=== PATIENT | female | born 1950 | race Caucasian/White ===

== ENCOUNTER 2017-12-22 20:07 | Inpatient (IN) ==
--- NOTE | 2017-12-22 21:35 | ED ---
HPI General Chief Complaint: Fall Stated Complaint: Evac/Fall Time Seen by Provider: 12/22/17 21:18 History of Present Illness HPI Narrative: This is a 67-year-old female who presents to the emergency department having been up on the second story of her storage space when she fell and landed on her left side. She has severe pain in her left upper arm, constant, worse with movement, improved with rest. She also has a large hematoma on the left hip and has some pain there. She was able to weight-bear with EMS with assistance. She did hit her head. She has some pain in her neck but she has chronic neck pain. She is on Plavix. She received 20 mg of IV morphine with EMS prior to arrival. Related Data Allergies Allergy/AdvReac Type Severity Reaction Status Date / Time No Known Allergies Allergy Verified 12/22/17 21:37 Review of Systems Except as stated in HPI: all other systems reviewed are negative [facility] Medical History Medical History COPD (chronic obstructive pulmonary disease) (Acute) Diabetes (Acute) HTN (hypertension) (Acute) PVD (peripheral vascular disease) (Acute) Stenosis of lower extremity artery (Acute) Social History Social History Substance History: No History of Abuse Second Hand Smoke Exposure: Yes Smoking Status: Current every day smoker Tobacco Type: Cigarettes How Often Do You Have a Drink Containing Alcohol: Never Exam Narrative Exam Narrative: GENERAL:Well appearing, no acute distress SKIN: Hematoma mid forehead HEAD: Atraumatic. Normocephalic. EYES: Pupils equal and round. No injection or drainage. ENT: Moist mucous membranes NECK: Trachea midline. CARDIOVASCULAR: Regular rate and rhythm. No murmur appreciated. 2+ left radial pulse and left d.p. pulse with normal capillary refill in all extremiteis. RESPIRATORY: Clear to auscultation. Breath sounds equal bilaterally. GASTROINTESTINAL: Abdomen soft, non-tender, nondistended. MUSCULOSKELETAL: Large hematoma left anterior upper thigh, able to flex and extend the left hip, tender to palpation over the proximal left humerus with a hematoma there. NEUROLOGICAL: Awake and alert. No obvious cranial nerve deficits. Moving all extremities. PSYCHIATRIC: Appropriate mood and affect; insight and judgment normal. Course Initial Documented Vital Signs Pulse Rate 114 H 12/22/17 21:11 Respiratory Rate 13 12/22/17 21:11 Blood Pressure 121/56 L 12/22/17 21:11 Pulse Oximetry 97 12/22/17 21:11 Last Documented Vital Signs Temperature 98.1 F 12/22/17 21:43 Pulse Rate 109 H 12/22/17 21:43 Respiratory Rate 18 12/22/17 22:57 Blood Pressure 117/57 L 12/22/17 21:43 Pulse Oximetry 97 12/22/17 21:43 Medical Decision Making MDM Narrative Medical decision making narrative: This is a 67-year-old female who presents to the emergency department having had a fall. She was placed on a monitor and an IV was established. Labs demonstrate a marked leukocytosis which I suspect is a stress response in the setting of trauma. X-rays demonstrate a proximal humerus fracture and bilateral pubic rami fractures. CT abdomen pelvis was obtained to exclude internal trauma which was reassuring. Patient will be admitted to the trauma service for pain control. Differential Diagnosis Differential Diagnosis: Intracranial hemorrhage, cervical spine fracture, rib fracture, pneumothorax, liver laceration, renal laceration femur fracture, pelvic fracture Lab Data Lab results reviewed: Yes I reviewed the patient's lab results. Result diagrams: 12/22/17 21:57 12/22/17 21:57 Lab Results 12/22/17 12/22/17 12/22/17 Range/Units 21:57 21:57 21:57 WBC 23.8 H (4.0-11.0) th/mm3 RBC 3.88 L (4.00-5.30) mil/mm3 Hgb 11.4 L (11.6-15.3) gm/dL Hct 35.5 (35.0-46.0) % MCV 91.5 (80.0-100.0) fL MCH 29.3 (27.0-34.0) pg MCHC 32.0 (32.0-36.0) % RDW 14.7 (11.6-17.2) % Plt Count 232 (150-450) th/mm3 MPV 9.5 (7.0-11.0) fL Neut % (Auto) 89.3 H (16.0-70.0) % Lymph % (Auto) 5.5 L (9.0-44.0) % [place] % (Auto) 4.6 (0.0-8.0) % Eos % (Auto) 0.2 (0.0-4.0) % Baso % (Auto) 0.4 (0.0-2.0) % Neut # (Auto) 21.2 H (1.8-7.7) th/mm3 Lymph # (Auto) 1.3 (1.0-4.8) th/mm3 [place] # (Auto) 1.1 H (0.0-0.9) th/mm3 Eos # (Auto) 0.1 (0.0-0.4) th/mm3 Baso # (Auto) 0.1 (0.0-0.2) th/mm3 WBC Differential . Differential Comment Auto diff final Sodium 143 (136-145) meq/L Potassium 4.3 (3.5-5.1) meq/L Chloride 113 H (98-107) meq/L Carbon Dioxide 23.6 (21.0-32.0) meq/L Anion Gap 6 (5-15) meq/L BUN 20 H (7-18) mg/dL Creatinine 0.82 (0.50-1.00) mg/dL Estimated GFR 69 L (>89) mL/min Random Glucose 180 H (74-106) mg/dL Calcium 8.1 L (8.5-10.1) mg/dL Total Bilirubin 0.2 (0.2-1.0) mg/dL AST 20 (15-37) U/L ALT 23 (10-53) U/L Alkaline Phosphatase 58 (45-117) U/L Total Protein 6.2 L (6.4-8.2) g/dL Albumin 3.1 L (3.4-5.0) g/dL Serum Alcohol Less than 3 (0-5) mg/dL Imaging Data Attestation: I personally reviewed and interpreted this imaging study as follows : Radiologist's impression: Cervical Spine CT 12/22/17 21:19 CONCLUSION: 1. No evidence of acute fracture. 2. Moderate severity degenerative changes in the mid and lower cervical spine with subluxations C3-5 and hypertrophy at C5-6. These findings are similar to a recent PET/CT scan. 3. The only new finding is curvature of the cervical spine convex to the left. Head CT 12/22/17 21:19 CONCLUSION: 1. Negative noncontrast CT brain. . Hip X-Ray 12/22/17 21:20 CONCLUSION: 1. Fractures of the pubic bones bilaterally. 2. No left hip fracture seen. Humerus X-Ray 12/22/17 21:20 CONCLUSION: Displaced spiral fracture of the proximal shaft of the humerus. Abdomen/Pelvis CT 12/22/17 22:51 CONCLUSION: 1. Acute fractures of the left inferior pubic ramus and right superior pubic ramus. Likely nondisplaced acute fracture of the left sacral ala. 2. Prominent superficial soft tissue hematoma lateral to the left hip. 3. No acute intra-abdominal findings. Chest X-Ray 12/22/17 22:51 CONCLUSION: No acute cardiopulmonary disease identified. Discharge Plan Discharge Disposition Patient Disposition: 30 Still Patient Discharge Condition Condition: Stable Discharge Details Diagnosis: Bilateral pubic rami fractures Physicians Team ED Provider: Eufemia Waldrop Primary Care Provider: Gonsalo Buchanan Attending Provider: Constance Wick Discharge Interventions Interventions: Vital Signs Last Done: 12/22/17 21:43 Status ED Status: Admitted Patient
--- NOTE | 2017-12-22 22:12 | CT ---
EXAM DATE: 12/22/2017 10:06 PM EDT AGE/SEX: 67 years / Female INDICATIONS: Patient fell and hit head. CLINICAL DATA: This is the patient's initial encounter. Patient reports that signs and symptoms have been present for 1 day and indicates a pain score of 4/10. MEDICAL/SURGICAL HISTORY: Chronic obstructive pulmonary disease. Diabetes. Hypertension. None. RADIATION DOSE: 56.35 CTDI (mGy) COMPARISON: No prior exams available for comparison. TECHNIQUE: CT of the head without contrast. Using automated exposure control and adjustment of the mA and/or kV according to patient size, radiation dose was kept as low as reasonably achievable to ob tain optimal diagnostic quality images. DICOM format image data is available electronically for revi ew and comparison. FINDINGS: Cerebrum: The ventricles are normal for age. No evidence of midline shift, mass lesion, hemorrhage or acute infarction. No extraaxial fluid collections are seen. Posterior Fossa: The cerebellum and brainstem are intact. The 4th ventricle is midline. The cerebe llopontine angle is unremarkable. Extracranial: The visualized portion of the orbits is intact. Skull: The calvaria is intact. No evidence of skull fracture. CONCLUSION: 1. Negative noncontrast CT brain. . Electronically signed by: Miguel Cuevas MD 12/22/2017 10:11 PM EDT
[2017-12-22 22:18] LABS: Baso # (Auto) 0.1 th/mm3 (0.0-0.2); Baso % (Auto) 0.4 % (0.0-2.0); Eos # (Auto) 0.1 th/mm3 (0.0-0.4); Eos % (Auto) 0.2 % (0.0-4.0); Hematocrit 35.5 % (35.0-46.0); Hemoglobin 11.4 gm/dL (11.6-15.3); Lymph # (Auto) 1.3 th/mm3 (1.0-4.8); Lymph % (Auto) 5.5 % (9.0-44.0); Mean Corpuscular Hemoglobin 29.3 pg (27.0-34.0); Mean Corpuscular Volume 91.5 fL (80.0-100.0); Mean Platelet Volume 9.5 fL (7.0-11.0); Mono # (Auto) 1.1 th/mm3 (0.0-0.9); Mono % (Auto) 4.6 % (0.0-8.0); Neut # (Auto) 21.2 th/mm3 (1.8-7.7); Neut % (Auto) 89.3 % (16.0-70.0); Platelet Count 232 th/mm3 (150-450); Red Blood Count 3.88 mil/mm3 (4.00-5.30); Red Cell Distribution Width 14.7 % (11.6-17.2); White Blood Count 23.8 th/mm3 (4.0-11.0)
--- NOTE | 2017-12-22 22:27 | CT ---
EXAM DATE: 12/22/2017 10:11 PM EDT AGE/SEX: 67 years / Female INDICATIONS: Patient fell and hit head, chronic neck pain. CLINICAL DATA: This is the patient's initial encounter. Patient reports that signs and symptoms have been present for 1 day and indicates a pain score of 4/10. MEDICAL/SURGICAL HISTORY: Chronic obstructive pulmonary disease. Diabetes. Hypertension. None . RADIATION DOSE: 22.68 CTDI (mGy) COMPARISON: TLI, PET/CT WHOLE BODY, 12/15/2017. . TECHNIQUE: Contiguous axial images were obtained using helical multirow detector technique. The vol umetric data was post-processed with multiplanar reconstruction in oblique axial, sagittal, and coron al planes. Using automated exposure control and adjustment of the mA and/or kV according to patient s ize, radiation dose was kept as low as reasonably achievable to obtain optimal diagnostic quality nayla ges. DICOM format image data is available electronically for review and comparison. FINDINGS: There is mild anterolisthesis of C3 with respect to C4 and C4 with respect to C5. Marked narrowing of the C5-6 interspace with anterior posterior osteophytes and moderate narrowing of the C6-7 interspac e. The appearance of the alignment and degenerative changes is very similar to bone window images a r ecent PET/CT scan. The posterior elements are in normal alignment. No evidence of locked or perched f acets. Moderate severity facet joint hypertrophy is present in the lower cervical spine. In frontal p rojection, there is a moderate curvature of the cervical spine convex towards the left; the curvature is a new finding from the prior PET CT scan. The atlantoaxial articulation is intact.. C2-3: No fracture seen. The neural foramina are patent. C3-4: No fracture seen. The neural foramina are patent. C4-5: No fracture seen. The neural foramina are patent. C5-6: No fracture seen. The neural foramina are patent. C6-7: No fracture seen. The neural foramina are patent. C7-T1: No fracture seen. The neural foramina are patent. CONCLUSION: 1. No evidence of acute fracture. 2. Moderate severity degenerative changes in the mid and lower cervical spine with subluxations C3-5 and hypertrophy at C5-6. These findings are similar to a recent PET/CT scan. 3. The only new finding is curvature of the cervical spine convex to the left. Electronically signed by: Miguel Cuevas MD 12/22/2017 10:26 PM EDT
[2017-12-22 22:34] LABS: Alanine Aminotransferase 23 U/L (10-53); Albumin 3.1 g/dL (3.4-5.0); Anion Gap 6 meq/L (5-15); Aspartate Aminotransferase 20 U/L (15-37); Blood Urea Nitrogen 20 mg/dL (7-18); Calcium 8.1 mg/dL (8.5-10.1); Carbon Dioxide 23.6 meq/L (21.0-32.0); Chloride 113 meq/L (98-107); Glomerular Filtration Rate 69 mL/min (>89); Glucose,Random 180 mg/dL (74-106); Potassium 4.3 meq/L (3.5-5.1); Sodium 143 meq/L (136-145)
--- NOTE | 2017-12-22 22:35 | XR ---
EXAM DATE: 12/22/2017 10:31 PM EDT AGE/SEX: 67 years / Female INDICATIONS: Patient complains of left humerus pain status post fall. CLINICAL DATA: This is the patient's initial encounter. Patient reports that signs and symptoms have been present for 1 day and indicates a pain score of 8/10. MEDICAL/SURGICAL HISTORY: None. None. COMPARISON: No prior exams available for comparison. FINDINGS: There is a spiral fracture through the proximal shaft of the humerus with one shaft width medial and anterior displacement of the proximal fracture fragment. The AC joint is intact. The bony acetabulum appears grossly intact. CONCLUSION: Displaced spiral fracture of the proximal shaft of the humerus. Electronically signed by: Miguel Cuevas MD 12/22/2017 10:34 PM EDT
[2017-12-22 22:36] LABS: Alkaline Phosphatase 58 U/L (45-117); Total Protein 6.2 g/dL (6.4-8.2)
--- NOTE | 2017-12-22 22:48 | XR ---
EXAM DATE: 12/22/2017 10:31 PM EDT AGE/SEX: 67 years / Female INDICATIONS: Patient complains of let hip pain status post fall. CLINICAL DATA: This is the patient's initial encounter. Patient reports that signs and symptoms have been present for 1 day and indicates a pain score of 5/10. MEDICAL/SURGICAL HISTORY: None. None. COMPARISON: No prior exams available for comparison. FINDINGS: There are fractures of the left superior and inferior pubic ramus and a fracture of the right superio r pubic ramus. No diastases of the symphysis pubis. Several of the arcuate lines of the sacrum are vi sualized and have a symmetric appearance. The primary and secondary trabecular pattern of the left fe moral neck is intact. Mild narrowing of the left hip joint. CONCLUSION: 1. Fractures of the pubic bones bilaterally. 2. No left hip fracture seen. Electronically signed by: Miguel Cuevas MD 12/22/2017 10:47 PM EDT
--- NOTE | 2017-12-22 23:33 | XR ---
EXAM DATE: 12/22/2017 11:10 PM EDT AGE/SEX: 67 years / Female INDICATIONS: Evaluate for pneumothorax, pneumonia, or any other communicable diseases. Trauma due to fall. CLINICAL DATA: This is the patient's initial encounter. Patient reports that signs and symptoms have been present for 1 day and indicates a pain score of 3/10. MEDICAL/SURGICAL HISTORY: Hypercholesterolemia. Chronic obstructive pulmonary disease. Diabet es mellitus type II. Hypertension. Melanoma. . Stent. COMPARISON: No prior exams available for comparison. FINDINGS: Single AP view of the chest. The lungs are clear. Cardiomediastinal silhouette within nor mal limits. No evidence of pleural effusion or pneumothorax. CONCLUSION: No acute cardiopulmonary disease identified. Electronically signed by: Kiran Santos MD 12/22/2017 11:32 PM EDT
--- NOTE | 2017-12-23 00:19 | CT ---
EXAM DATE: 12/22/2017 11:49 PM EDT AGE/SEX: 67 years / Female INDICATIONS: Fell today, abdominal pain. CLINICAL DATA: This is the patient's initial encounter. Patient reports that signs and symptoms have been present for 1 day and indicates a pain score of 4/10. MEDICAL/SURGICAL HISTORY: Chronic obstructive pulmonary disease. Diabetes. Hypertension. None . ORAL CONTRAST: No oral contrast ingested. RADIATION DOSE: 11.53 CTDI (mGy) COMPARISON: No prior exams available for comparison. TECHNIQUE: Multiple contiguous axial images were obtained through the abdomen and pelvis following b olus infusion of 92 ml Omnipaque 350 (iohexol) nonionic water-soluble contrast as a single exam dos e. No oral contrast ingested. Using automated exposure control and adjustment of the mA and/or kV ac cording to patient size, radiation dose was kept as low as reasonably achievable to obtain optimal di agnostic quality images. DICOM format image data is available electronically for review and comparis on. FINDINGS: Lower Lungs: Mild atelectasis at the dependent portions of the lungs. Liver: The liver has a homogeneous density without space-occupying lesion. There is no dilation of th e biliary tree. Spleen: Homogeneous density without enlargement. Pancreas: Unremarkable without mass or calcification. Kidneys: 3 mm nonobstructing calculus versus arterial calcification in the midpole of the right kidn ey. 1.7 cm nonenhancing cyst in the posterior mid pole of the left kidney. Subcentimeter hypodensitie s in the anterior midpole of the right kidney likely represent cysts. Arterial calcification noted an teriorly on the left. No evidence of hydronephrosis. Adrenal Glands: Unremarkable. Aorta: Diffuse aortic calcification. Diameter is within normal limits. Bowel/Mesentery: No evidence of bowel dilatation. No focal bowel wall thickening. No free air or denisse e fluid. Scattered colonic diverticula. No evidence of acute diverticulitis. Appendix within normal l imits. Abdominal Wall: Intact. Retroperitoneum: No evidence of adenopathy in the retrocrural, para-aortic, or deep pelvic regions. Bladder: Contours are smooth. Reproductive Organs: No abnormal masses or calcifications seen. Inguinal: The inguinal region is unremarkable without evidence of adenopathy. Musculoskeletal: There is an acute fracture of the inferior pubic ramus on the left with mild angula tion and displacement of up to 4 mm. Nondisplaced fracture of the right pubic body and medial right s uperior pubic ramus. Likely fracture of the left sacral ala represented by a thin vertical sclerotic line. Prominent oval-shaped hematoma superficial soft tissues lateral to the left hip measuring 7.5 x 5.0 cm. Prominent surrounding soft tissue edema/contusion. All of the visualized muscles are within normal limits. CONCLUSION: 1. Acute fractures of the left inferior pubic ramus and right superior pubic ramus. Likely nondispla sandra acute fracture of the left sacral ala. 2. Prominent superficial soft tissue hematoma lateral to the left hip. 3. No acute intra-abdominal findings. Electronically signed by: Kiran Santos MD 12/23/2017 12:18 AM EDT
[2017-12-23] MEDS ORDERED: Acetaminophen 325 MG Tablet PO PRN (00:36)
[2017-12-23] MEDS ORDERED: Morphine Sulfate Inj 2 MG/ML Vial IV.PUSH PRN (00:37)
[2017-12-23] MEDS ORDERED: Sod Chloride 0.9% Inj 1,000 ML IV.CONT SCH ×2 (00:45→02:00)
[2017-12-23] MEDS ORDERED: Post-op Orders (for Pharmacy) OTHER ONE (01:53)
[2017-12-23] MEDS ORDERED: Bisacodyl 10 MG Supp RECTAL PRN (01:53)
[2017-12-23] MEDS ORDERED: Naloxone Inj 0.4 MG/ML Vial IV.PUSH PRN (01:53)
[2017-12-23] MEDS ORDERED: Metoprolol Tartrate 25 MG Tablet PO SCH (03:00)
[2017-12-23] MEDS ORDERED: Sodium Chlor 0.9% Inj 500 ML IV.SIG SCH (03:00)
[2017-12-23] MEDS ORDERED: Chlorhexidine Gluconate 2% 1 Pack (2 Cloths) TOPICAL SCH (03:00)
[2017-12-23 03:01] LABS: Bacteria,Urine Moderate /hpf; Bilirubin,Urine Negative (Negative); Clarity,Urine Cloudy (Clear); Color,Urine Yellow (Yellw/Straw); Glucose,Urine (UA) Negative (Negative); Leukocyte Esterase,Urine Moderate (Negative); Mucus,Urine Few /lpf (Occasional); Nitrite,Urine Negative (Negative); Specific Gravity,Urine 1.058 (1.002-1.035); Squamous Epithelial Cell,Urine 30 /hpf (0-5)
--- NOTE | 2017-12-23 06:48 | P.PNOP ---
Subjective Interval history: Patient had a fall from a 3 step ladder yesterday. She complains of left shoulder pain as well as pelvis pain. She has a history of a 1 pack a day smoking and previous stents. Patient takes Plavix Physical Exam Vital signs: Vital Signs 12/22/17 21:11 12/22/17 21:43 12/22/17 22:57 Temperature 98.1 F Pulse Rate 114 H 109 H Respiratory Rate 13 16 18 Blood Pressure 121/56 L 117/57 L Pulse Oximetry 97 97 12/23/17 01:37 12/23/17 02:00 Temperature 97.4 F L Pulse Rate 109 H 105 H Respiratory Rate 18 18 Blood Pressure 130/61 125/61 Pulse Oximetry 97 95 Intake & Output 12/22/17 12/22/17 12/23/17 06:59 18:59 06:59 Intake Total 100 / 100 Balance 100 / 100 Weight 63.503 kg Intake: IV 100 / 100 Ofirmev Inj 1,000 mg In 100 ml 100 / 100 @ 400 mls/hr IV.SIG ONCE ONE Rx #:[id number] Narrative: Left upper extremity: Swelling over shoulder. Skin is intact. Distally she has intact sensation of the radial ulnar capillary refills. She is able to fully extend her fingers make a fist. Right upper extremity: Full range of motion neurovascularly intact Bilateral lower extremities: Full range of motion and neurovascularly intact. Some tenderness to palpation over pubic rami - Constitutional no acute distress Results - Labs CBC & Chem 7: 12/22/17 21:57 12/22/17 21:57 Laboratory Results - last 24 hr 12/22/17 12/22/17 12/22/17 21:57 21:57 21:57 WBC 23.8 H RBC 3.88 L Hgb 11.4 L Hct 35.5 MCV 91.5 MCH 29.3 MCHC 32.0 RDW 14.7 Plt Count 232 MPV 9.5 Neut % (Auto) 89.3 H Lymph % (Auto) 5.5 L [place] % (Auto) 4.6 Eos % (Auto) 0.2 Baso % (Auto) 0.4 Neut # (Auto) 21.2 H Lymph # (Auto) 1.3 [place] # (Auto) 1.1 H Eos # (Auto) 0.1 Baso # (Auto) 0.1 WBC Differential . Differential Comment Auto diff final Sodium 143 Potassium 4.3 Chloride 113 H Carbon Dioxide 23.6 Anion Gap 6 BUN 20 H Creatinine 0.82 Estimated GFR 69 L Random Glucose 180 H Calcium 8.1 L Total Bilirubin 0.2 AST 20 ALT 23 Alkaline Phosphatase 58 Total Protein 6.2 L Albumin 3.1 L Urine Color Urine Clarity Urine pH Ur Specific [place] Urine Protein Urine Glucose (UA) Urine Ketones Urine Occult Blood Urine Nitrate Urine Bilirubin Urine Urobilinogen Ur Leukocyte Esterase Urine RBC Urine WBC Ur Squamous Epith Cells Urine Bacteria Urine Mucus Serum Alcohol Less than 3 12/23/17 01:37 WBC RBC Hgb Hct MCV MCH MCHC RDW Plt Count MPV Neut % (Auto) Lymph % (Auto) [place] % (Auto) Eos % (Auto) Baso % (Auto) Neut # (Auto) Lymph # (Auto) [place] # (Auto) Eos # (Auto) Baso # (Auto) WBC Differential Differential Comment Sodium Potassium Chloride Carbon Dioxide Anion Gap BUN Creatinine Estimated GFR Random Glucose Calcium Total Bilirubin AST ALT Alkaline Phosphatase Total Protein Albumin Urine Color Yellow Urine Clarity Cloudy H Urine pH 5.0 Ur Specific [place] 1.058 H Urine Protein Negative Urine Glucose (UA) Negative Urine Ketones Negative Urine Occult Blood Small H Urine Nitrate Negative Urine Bilirubin Negative Urine Urobilinogen Less than 2 Ur Leukocyte Esterase Moderate H Urine RBC 3 Urine WBC 30 H Ur Squamous Epith Cells 30 Urine Bacteria Moderate H Urine Mucus Few H Serum Alcohol - Imaging Impressions Cervical Spine CT 12/22/17 21:19 CONCLUSION: 1. No evidence of acute fracture. 2. Moderate severity degenerative changes in the mid and lower cervical spine with subluxations C3-5 and hypertrophy at C5-6. These findings are similar to a recent PET/CT scan. 3. The only new finding is curvature of the cervical spine convex to the left. Head CT 12/22/17 21:19 CONCLUSION: 1. Negative noncontrast CT brain. . Hip X-Ray 12/22/17 21:20 CONCLUSION: 1. Fractures of the pubic bones bilaterally. 2. No left hip fracture seen. Humerus X-Ray 12/22/17 21:20 CONCLUSION: Displaced spiral fracture of the proximal shaft of the humerus. Abdomen/Pelvis CT 12/22/17 22:51 CONCLUSION: 1. Acute fractures of the left inferior pubic ramus and right superior pubic ramus. Likely nondisplaced acute fracture of the left sacral ala. 2. Prominent superficial soft tissue hematoma lateral to the left hip. 3. No acute intra-abdominal findings. Chest X-Ray 12/22/17 22:51 CONCLUSION: No acute cardiopulmonary disease identified. Assessment and Plan - Assessment and Plan Left proximal humerus fracture Both surgical and nonsurgical options discussed. She would like to proceed with surgery today. She will remain n.p.o. We will proceed with open reduction internal fixation of left proximal humerus. Consents are on chart to sign Bilateral rami fractures Nonoperative treatment. Weightbearing as tolerated bilateral lower extremities
[2017-12-23] MEDS: Senna/Docusate Sodium 8.6/50 MG Tablet PO SCH ×2 (09:23→21:14)
--- NOTE | 2017-12-23 09:38 | MB ---
cc: Wm Suazo MD DATE: 12/23/2017 REASON FOR CONSULTATION: 1. Left proximal humerus fracture. 2. Bilateral pubic rami fractures. CONSULTING PHYSICIAN: Constance Wick MD HISTORY OF PRESENT ILLNESS: Luz Maria is a 67-year-old female who was on the third step of a ladder. She fell. She landed on her left side. She had immediate left shoulder and pelvic pain. She denies dizziness, syncope or loss of consciousness. She describes a mechanical fall. She presented to the emergency room where she was found to have a displaced left proximal humerus fracture as well as bilateral pubic rami fractures. Pain is worse with movement and is improved with rest. PAST MEDICAL HISTORY: COPD, diabetes, hypertension, and peripheral vascular disease. ALLERGIES: NO KNOWN DRUG ALLERGIES. MEDICATIONS: The patient does take Plavix secondary to her stent placements. SOCIAL HISTORY: The patient denies alcohol or drug use. She does still continue to smoke a pack of cigarettes a day. FAMILY HISTORY: Noncontributory. REVIEW OF SYSTEMS: The patient denies fevers/chills, weight loss, headache, visual changes, hearing loss, chest pain, palpitations, shortness of breath, nausea or vomiting, urinary changes, diarrhea, bowel changes, neck pain, back pain, skin rashes, weakness or numbness of extremities, anxiety or depression. She complains of left shoulder pain and pelvic pain. The pain is worse with movement. LABORATORY DATA: The patient has a white blood cell count of 23.8, hematocrit of 35, platelet count of 232. Potassium is 4.3, creatinine is 0.82. IMAGING STUDIES: X-rays of the left shoulder were reviewed. X-rays reveal displaced left proximal humerus fracture. X-rays of pelvis were reviewed. X-rays reveal bilateral pubic rami fractures. PHYSICAL EXAMINATION: GENERAL APPEARANCE: The patient is a thin 67-year-old female. She is awake and alert. She is in no acute distress. She appears well-developed and well-nourished. VITAL SIGNS: Temperature 97.2, pulse 103, respirations 18, blood pressure 121/62, O2 saturations 95% on 2 liters nasal cannula. HEENT: Head: The patient is normocephalic. Pupils are equal. NECK: Soft and nontender. The trachea is in the midline. ABDOMEN: Soft, nontender, and nondistended. EXTREMITIES: Examination of the left arm reveals mild swelling around her shoulder. She has pain with any shoulder motion. She has no tenderness around her elbow, wrist or fingers. She has intact sensation in all fingers. She has good cap refill in all fingers. Skin is intact. Examination of the right arm reveals no pain with shoulder, elbow or wrist motion. Skin is intact. Radial pulses are palpable bilaterally. Examination of the bilateral lower extremities reveals no significant pain with hip, knee or ankle motion. Skin is intact bilaterally. Sensation is intact to both feet. Examination of her pelvis reveals mild tenderness of her pubic rami. Her pelvis is stable to AP and lateral compression. IMPRESSION: 1. Chronic obstructive pulmonary disease. 2. Peripheral vascular disease. 3. Diabetes. 4. Hypertension. 5. Left proximal humerus fracture. 6. Bilateral pubic rami fractures. PLAN: Treatment options were discussed with the patient. At this point, I would recommend open reduction and internal fixation of left proximal humerus and nonsurgical treatment of bilateral rami fractures. Risks of surgery include bleeding, infection; injuries to arteries, nerves or blood vessels; nonunion, malunion, painful hardware as well as medical complications including blood clot, stroke, heart attack and . All questions were answered. I will plan on surgery today. Postoperatively, I will start the patient on calcium and vitamin D. I will also consult physical therapy. A mid-level provider in my office, nurse practitioner or PA, may see this patient on a follow-up basis and continue to implement the objective of this plan including: Starting or adjusting medications, injections of muscle, tendon, bursa or joints, cast application, orthotic or brace application, physical therapy, further radiographic studies including x-ray, MRI, CT, ultrasounds or bone scan, vascular studies, neurologic studies, or other specialist consultations, and proceeding with surgical management as appropriate. MD YANI Marinelli/MARCO , 09:17 AM , 09:37 AM
[2017-12-23] MEDS ORDERED: Post-op Orders (for Pharmacy) OTHER STA (10:13)
[2017-12-23] MEDS ORDERED: Morphine Inj 4 MG/ML Vial IV.PUSH PRN (10:13)
--- NOTE | 2017-12-23 10:22 | P.OP ---
- Preoperative Diagnosis (1) Closed fracture of left proximal humerus Date of procedure: 12/23/17 Procedure: Open reduction internal fixation left proximal humerus fracture Anesthesia: GETA Surgeon: Wm Brown MD Drier Transfer Car Operator: GIAN Jones PA-C The surgical procedure was assisted by my physician assistant chief engineer. My P.A. presence was necessary throughout this case for the manipulation and positioning of the surgical extremity. My P.A. was assisting me throughout the duration of this procedure. The skill set of a physician assistant chief engineer was medically necessary to complete this procedure. During the surgical case the surgical training specialist was working at the back table and the physician assistant chief engineer was directly assisting me. Operation and Findings: Implants used: Synthes Plan of activity: Sling and swath, Details of procedure: Patient was seen and evaluated preoperatively. Patient was found to have a displaced proximal humerus fracture. The risks and benefits of surgical and nonsurgical options were discussed in detail and informed consent was obtained for surgery. Patient was brought to the operating room and placed on or table. IV sedation and GETA were administered by anesthesiologist. Antibiotics were given prior to incision. Operative arm and shoulder were prepped with alcohol followed by Hibiclens and draped usual sterile fashion. Timeout procedure was performed. Procedure began with a 5 inch incision over the anterior shoulder. Cephalic vein was identified. A deltopectoral approach was utilized. The fracture was now visualized. Soft tissue was retracted. Attention was now turned to reduction. Gentle traction was applied. The humeral shaft was reduced to the humeral head. Fracture was manipulated to achieve excellent reduction. Multiplanar fluoroscopy confirmed well aligned fracture. Multiple K wires were used to hold provisional fixation. A Synthes proximal humerus plate was selected. Plate was provisionally held in place K wires. 3.5 cortical screws were used to compress plate to bone. Fluoroscopy confirmed appropriate plate placement and fracture reduction. Multiple locking screws were now placed in the humeral head. Screws were predrilled and premeasured for appropriate length. Care was taken not to penetrate the articular surface. Additional screws were placed in the humeral shaft. Final fluoroscopy revealed well aligned fracture with well-placed hardware. Wound was thoroughly irrigated. Fascia was closed with #1 Vicryl, subcutaneous tissues closed with 3-0 Vicryl, and skin was closed with nain. Sterile dressings were applied. Patient was placed into a sling. Patient was awakened and transferred to recovery in stable condition. Needle and sponge counts were correct.
[2017-12-23] MEDS ORDERED: Neostigmine Inj 5 MG/5 ML Syringe IV.PUSH ONE (12:00)
[2017-12-23] MEDS ORDERED: Phenylephrine/NS 1000 MCG/10ML Syringe IV.PUSH ONE (12:00)
[2017-12-23] MEDS ORDERED: Lidocaine PF 1% Inj 5 ML Syringe INFILTRATN ONE (12:00)
[2017-12-23] MEDS ORDERED: Glycopyrrolate Inj 1 MG/5 ML Syringe IV.PUSH ONE (12:00)
[2017-12-23] MEDS ORDERED: fentaNYL Citrate Inj 100 MCG/2 ML Ampul ONE (12:05)
[2017-12-23] MEDS ORDERED: Dextrose 50% in Water 50 ML Vial IV.PUSH PRN (12:14)
[2017-12-23] MEDS ORDERED: *morphine SULFATE 10 MG/ML PERIprocedure ONLY ONE (12:22)
--- NOTE | 2017-12-23 12:29 | P.PNGS ---
<Dong Baum M - Last Filed: 12/23/17 12:13> Subjective Interval history: Reports left hip and left arm pain OR today for left humerus repair Physical Exam Vital signs: Vital Signs 12/22/17 21:11 12/22/17 21:43 12/22/17 22:57 Temperature 98.1 F Pulse Rate 114 H 109 H Respiratory Rate 13 16 18 Blood Pressure 121/56 L 117/57 L Pulse Oximetry 97 97 12/23/17 01:37 12/23/17 02:00 12/23/17 04:00 Temperature 97.4 F L 97.2 F L Pulse Rate 109 H 105 H 103 H Respiratory Rate 18 18 18 Blood Pressure 130/61 125/61 121/62 Pulse Oximetry 97 95 95 12/23/17 08:00 12/23/17 12:01 Temperature 98.3 F 97.7 F Pulse Rate 109 H 115 H Respiratory Rate 19 13 Blood Pressure 118/61 152/67 H Pulse Oximetry 91 L 91 L Intake & Output 12/22/17 12/23/17 12/23/17 18:59 06:59 18:59 Intake Total 100 / 100 700 / 700 Output Total 75 / 75 Balance 100 / 100 625 / 625 Weight 63.5 kg Intake: IV 100 / 100 Ofirmev Inj 1,000 mg In 100 ml 100 / 100 @ 400 mls/hr IV.SIG ONCE ONE Rx #:[id number] Anesthesia Amount 700 / 700 Output: Estimated Blood Loss 75 / 75 Other: Date of Last Bowel Movement 12/22/17 Weight On Admission 63.5 kg Narrative: GENERAL:67 year old well-nourished, well developed female lying in bed in no acute distress. SKIN: Warm and dry. HEAD: Normocephalic. EYES: Pupils equal and round. No scleral icterus. ENT: No nasal bleeding or discharge. Mucous membranes pink and moist. NECK: Trachea midline. No JVD. CARDIOVASCULAR: Regular rate and rhythm. RESPIRATORY: No accessory muscle use. Lungs clear and diminished to auscultation. Breath sounds equal bilaterally. GASTROINTESTINAL: Abdomen soft, non-tender, nondistended. + BS. MUSCULOSKELETAL: Extremities without cyanosis, or edema. LUE in sling. MAEW, + perfused NEUROLOGICAL: Awake and alert. Normal speech. Assessment and Plan - Plan AFOGNAK: Fell off a 3 step ladder landing on her left side and striking her head. Takes Plavix. No LOC. INJURIES: LEFT humerus fx LEFT superior and inferior pubic rami fxs (non-op) Sacral fx (non-op) PMHx: Chronic neck pain, COPD, DM, PVD, HTN, LLE stenosis, 1 PPD smoker 12/23: ORIF LEFT humerus LEFT humerus fx Orthopedics consulted ORIF LEFT humerus today Pain control Bowel regimen NWB LUE OOB- PT/OT ordered LEFT superior and inferior pubic rami fxs, Sacral fx Orthopedics consulted Nonoperative management Pain control Bowel regimen WBAT BLE OOB- PT/OT ordered DM, COPD, HTN Home meds resumed ADA diet SSI PRN duonebs Plan of care discussed with patient at bedside. Collaborating Trauma surgeon agrees with plan. Case management consulted to assist with discharge planning. <Tone Fernández S - Last Filed: 01/03/18 21:22> Assessment and Plan - Plan patient seen at bedside OR today with ortho await recs and findings will follow - Attending Attestation The exam, history, and the medical decision-making described in the above note were completed with the assistance of the mid-level provider. I reviewed and agree with the findings presented. I attest that I had a [id number] encounter with the patient on the same day, and personally performed and documented my assessment and findings in the medical record.
[2017-12-23] MEDS ORDERED: Non-Formulary Drug (Fluticasone-Salmeterol [Advair Diskus] 1 INH) INHALATION SCH (12:30)
--- NOTE | 2017-12-23 13:53 | XR ---
EXAM DATE: 12/23/2017 1:49 PM EDT AGE/SEX: 67 years / Female INDICATIONS: Open reduction left humerus. CLINICAL DATA: This is the patient's subsequent encounter. Patient reports that signs and symptoms h ave been present for 2 days and indicates a pain score of Nonresponsive. MEDICAL/SURGICAL HISTORY: None. None. COMPARISON: No prior exams available for comparison. FINDINGS: 8 images are recorded digitally in the operating room using C-arm during placement of a proximal sejal ral plate. CONCLUSION: Intraoperative images. Electronically signed by: Miguel Cuevas MD 12/23/2017 1:52 PM EDT
[2017-12-23 14:35] LABS: Hematocrit 23.3 % (35.0-46.0); Hemoglobin 7.4 gm/dL (11.6-15.3)
--- NOTE | 2017-12-23 15:09 | ECG ---
Date Performed: 12/23/2017 Time Performed: 05:35:28 PTAGE: 67 years EKG: Sinus tachycardia. Rightward axis Low QRS voltages in precordial leads Since previous carlo ng, no significant change noted Borderline ECG PREVIOUS TRACING : 12/22/2017 21.25.24 DOCTOR: Alex Renteria Interpretating Date/Time 12/23/2017 15:08:59
--- NOTE | 2017-12-23 15:09 | ECG ---
Date Performed: 12/22/2017 Time Performed: 21:25:24 PTAGE: 67 years EKG: SINUS TACHYCARDIA BORDERLINE RIGHT AXIS DEVIATION ABNORMAL RHYTHM ECG NO PREVIOUS TRACING DOCTOR: Alex Renteria Interpretating Date/Time 12/23/2017 15:08:26
[2017-12-23] MEDS: Polyethylene Glycol 3350 17 GM Packet PO SCH (16:16)
[2017-12-23] MEDS: Lisinopril 20 MG Tablet PO SCH (16:18)
[2017-12-23] MEDS: Calcium/Vitamin D 250/125 MG Tablet PO SCH ×2 (16:22→18:46)
[2017-12-23] MEDS: ceFAZolin 2 GM Premix Inj 2 GM/50 ML PIGGYBACK IV.SIG SCH ×2 (16:22→22:57)
[2017-12-23] MEDS: Insulin NovoLIN Regular Correctional Sugar Inj SQ SCH ×2 (18:46→21:15)
--- NOTE | 2017-12-24 06:29 | P.PNOP ---
Subjective Interval history: Resting comfortably with no new complaints. Did have some bloody drainage after surgery and dressings are applied. Physical Exam Vital signs: Vital Signs 12/23/17 08:00 12/23/17 12:00 12/23/17 12:01 Temperature 98.3 F 97.7 F 97.7 F Pulse Rate 109 H 99 H 115 H Respiratory Rate 19 19 13 Blood Pressure 118/61 123/55 L 152/67 H Pulse Oximetry 91 L 91 L 91 L 12/23/17 12:15 12/23/17 12:26 12/23/17 12:30 Temperature Pulse Rate 98 H 97 H Respiratory Rate 11 L 13 16 Blood Pressure 142/66 H 109/59 L Pulse Oximetry 100 96 95 12/23/17 12:45 12/23/17 16:00 12/23/17 16:17 Temperature 97.7 F 97.7 F Pulse Rate 96 H 93 H Respiratory Rate 19 20 19 Blood Pressure 108/58 L 101/54 L Pulse Oximetry 96 99 12/23/17 20:00 12/24/17 00:00 12/24/17 04:00 Temperature 97.9 F 98.5 F 97.5 F L Pulse Rate 118 H 122 H 124 H Respiratory Rate 18 18 18 Blood Pressure 118/55 L 115/54 L 106/51 L Pulse Oximetry 95 54 L 92 L Intake & Output 12/23/17 12/23/17 12/24/17 06:59 18:59 06:59 Intake Total 100 / 100 750 / 750 1510 / 1510 Output Total 75 / 75 Balance 100 / 100 675 / 675 1510 / 1510 Weight 63.5 kg Intake: IV 100 / 100 50 / 50 1050 / 1050 LR 1000 mL Inj 1,000 ML @ 80 1000 / 1000 mls/hr IV.CONT .[id number] [facility] Rx# :[id number] Ofirmev Inj 1,000 mg In 100 ml 100 / 100 @ 400 mls/hr IV.SIG ONCE ONE Rx #:[id number] Ancef 2 GM Premix Inj 2 gm In 50 / 50 50 / 50 50 ml @ 100 mls/hr IV.SIG Q8H [facility] Rx#:[id number] Oral 460 / 460 Anesthesia Amount 700 / 700 Output: Estimated Blood Loss 75 / 75 Other: # Voids 4 Date of Last Bowel Movement 12/22/17 12/22/17 Weight On Admission 63.5 kg Narrative: Left upper extremity: Clean dry dressings intact. Moderate swelling. Intact sensation distally with full extension flexion of fingers. Sling and swath adjusted. Bilateral lower extremities: Full range of motion neurovascularly intact. Mild tenderness with active range of motion of hips. Results - Labs CBC & Chem 7: 12/23/17 14:20 12/22/17 21:57 Laboratory Results - last 24 hr 12/23/17 12/23/17 12/23/17 07:45 14:20 17:31 Hgb 7.4 L D Hct 23.3 L POC Glucose 165 H 234 H 12/23/17 21:12 Hgb Hct POC Glucose 172 H - Imaging Impressions Humerus X-Ray 12/23/17 00:00 CONCLUSION: Intraoperative images. Assessment and Plan - Assessment and Plan Left proximal humerus fracture ORIF POD 1 Strict nonweightbearing left upper extremity with sling and swath at all times except for physical therapy Physical therapy for pendulum swings Daily dressing changes with Xeroform Bilateral rami fractures Nonoperative treatment. Weightbearing as tolerated bilateral lower extremities Resume Plavix Plan for discharge to rehab when bed available Follow-up with Dr. Suazo or PA in 2 weeks
[2017-12-24] MEDS: ceFAZolin 2 GM Premix Inj 2 GM/50 ML PIGGYBACK IV.SIG SCH (06:36)
[2017-12-24 06:55] LABS: Baso % (Auto) 0.4 % (0.0-2.0); Eos % (Auto) 0.2 % (0.0-4.0); Lymph # (Auto) 1.7 th/mm3 (1.0-4.8); Lymph % (Auto) 14.7 % (9.0-44.0); Mean Corpuscular HGB Conc 32.9 % (32.0-36.0); Mean Corpuscular Hemoglobin 29.8 pg (27.0-34.0); Mean Corpuscular Volume 90.4 fL (80.0-100.0); Mean Platelet Volume 9.4 fL (7.0-11.0); Mono # (Auto) 1.1 th/mm3 (0.0-0.9); Mono % (Auto) 9.2 % (0.0-8.0); Neut # (Auto) 8.8 th/mm3 (1.8-7.7); Neut % (Auto) 75.5 % (16.0-70.0); Platelet Count 151 th/mm3 (150-450); Red Blood Count 2.02 mil/mm3 (4.00-5.30); Red Cell Distribution Width 14.4 % (11.6-17.2); White Blood Count 11.6 th/mm3 (4.0-11.0)
[2017-12-24 07:00] LABS: Anion Gap 4 meq/L (5-15); Blood Urea Nitrogen 15 mg/dL (7-18); Calcium 7.5 mg/dL (8.5-10.1); Carbon Dioxide 26.8 meq/L (21.0-32.0); Chloride 108 meq/L (98-107); Glomerular Filtration Rate Greater Than 89 mL/min (>89); Glucose,Random 129 mg/dL (74-106); Potassium 4.1 meq/L (3.5-5.1); Sodium 139 meq/L (136-145)
[2017-12-24 07:15] LABS: Hematocrit 18.2 % (35.0-46.0)
[2017-12-24] MEDS ORDERED: Sodium Chlor 0.9% Inj 250 ML IV.SIG SCH (09:00)
[2017-12-24] MEDS: Insulin NovoLIN Regular Correctional Sugar Inj SQ SCH ×3 (10:00→20:37)
[2017-12-24] MEDS: Senna/Docusate Sodium 8.6/50 MG Tablet PO SCH ×2 (10:01→20:30)
[2017-12-24] MEDS: Lisinopril 20 MG Tablet PO SCH (10:01)
[2017-12-24] MEDS: Polyethylene Glycol 3350 17 GM Packet PO SCH (10:02)
[2017-12-24] MEDS: Calcium/Vitamin D 250/125 MG Tablet PO SCH ×3 (10:02→17:55)
--- NOTE | 2017-12-24 12:15 | P.PNGS ---
Subjective Interval history: Hgb dropped to 6.0 today. RN reports increased sanguinous drainage from LUE surgical site overnight. Reports dizziness today, OOB in chair Reports Cade gives her a BURK Physical Exam Vital signs: Vital Signs 12/23/17 12:15 12/23/17 12:26 12/23/17 12:30 Temperature Pulse Rate 98 H 97 H Respiratory Rate 11 L 13 16 Blood Pressure 142/66 H 109/59 L Pulse Oximetry 100 96 95 12/23/17 12:45 12/23/17 16:00 12/23/17 16:17 Temperature 97.7 F 97.7 F Pulse Rate 96 H 93 H Respiratory Rate 19 20 19 Blood Pressure 108/58 L 101/54 L Pulse Oximetry 96 99 12/23/17 20:00 12/24/17 00:00 12/24/17 04:00 Temperature 97.9 F 98.5 F 97.5 F L Pulse Rate 118 H 122 H 124 H Respiratory Rate 18 18 18 Blood Pressure 118/55 L 115/54 L 106/51 L Pulse Oximetry 95 94 L 92 L Intake & Output 12/23/17 12/24/17 12/24/17 18:59 06:59 18:59 Intake Total 750 / 750 1510 / 1510 50 / 50 Output Total 75 / 75 Balance 675 / 675 1510 / 1510 50 / 50 Intake: IV 50 / 50 1050 / 1050 50 / 50 LR 1000 mL Inj 1,000 ML @ 80 1000 / 1000 mls/hr IV.CONT .[id number] [facility] Rx# :[id number] Ancef 2 GM Premix Inj 2 gm In 50 / 50 50 / 50 50 / 50 50 ml @ 100 mls/hr IV.SIG Q8H [facility] Rx#:[id number] Oral 460 / 460 Anesthesia Amount 700 / 700 Output: Estimated Blood Loss 75 / 75 Other: # Voids 4 Date of Last Bowel Movement 12/22/17 Narrative: GENERAL:67 year old well-nourished, well developed female OOB in chair. SKIN: Warm and dry. HEAD: Normocephalic. EYES: Pupils equal and round. No scleral icterus. ENT: No nasal bleeding or discharge. Mucous membranes pink and moist. NECK: Trachea midline. No JVD. CARDIOVASCULAR: Regular rate and rhythm. RESPIRATORY: No accessory muscle use. Lungs clear and diminished to auscultation. Breath sounds equal bilaterally. GASTROINTESTINAL: Abdomen soft, non-tender, nondistended. + BS. MUSCULOSKELETAL: Extremities without cyanosis, or edema. LUE dry dressing in place with sling. MAEW, + perfused NEUROLOGICAL: Awake and alert. Normal speech. Assessment and Plan - Plan [place]OSH[place]: Fell off a 3 step ladder landing on her left side and striking her head. Takes Plavix. No LOC. INJURIES: LEFT humerus fx LEFT superior and inferior pubic rami fxs (non-op) Sacral fx (non-op) PMHx: Chronic neck pain, COPD, DM, PVD, HTN, LLE stenosis, 1 PPD smoker 12/23: ORIF LEFT humerus LEFT humerus fx Orthopedics consulted 12/23: ORIF LEFT humerus Hgb 6.0 today, transfuse 3 PRBCs Labs in AM Monitor for s/s of bleeding - Notify Ortho if surgical site continues to bleed Tele Pain control Bowel regimen NWB LUE OOB- PT/OT ordered Hold Plavix LEFT superior and inferior pubic rami fxs, Sacral fx Orthopedics consulted Nonoperative management Pain control Bowel regimen WBAT BLE OOB- PT/OT ordered DM, COPD, HTN Home meds resumed ADA diet SSI PRN duonebs Plan of care discussed with patient and RN at bedside. Collaborating Trauma surgeon agrees with plan. Case management consulted to assist with discharge planning.
[2017-12-24] MEDS: Budesonide-Formoterol 160/4.5 MCG 6 GM Inhaler INH SCH (22:53)
[2017-12-24] MEDS: oxyCODONE/Acetaminophen 10/325 Tablet PO PRN (22:59)
[2017-12-25 04:33] LABS: Hematocrit 30.1 % (35.0-46.0); Hemoglobin 10.3 gm/dL (11.6-15.3)
[2017-12-25] MEDS: oxyCODONE/Acetaminophen 10/325 Tablet PO PRN ×3 (05:19→12:43)
--- NOTE | 2017-12-25 06:54 | P.PNOP ---
Subjective Interval history: POD 2 s/p ORIF left proximal humerus fx Doing well. States pain is improving. Received 3 units of blood yesterday. Physical Exam Vital signs: Vital Signs 12/24/17 12:00 12/24/17 14:12 12/24/17 14:31 Temperature 98.1 F 98.0 F 98.1 F Pulse Rate 116 H 122 H 118 H Respiratory Rate 18 20 20 Blood Pressure 94/49 L 120/57 L 115/55 L Pulse Oximetry 93 L 12/24/17 16:00 12/24/17 18:46 12/24/17 18:55 Temperature 98.8 F 99.0 F 98.9 F Pulse Rate 118 H 119 H 110 H Respiratory Rate 18 20 18 Blood Pressure 136/57 L 112/56 L 122/57 L Pulse Oximetry 96 95 95 12/24/17 20:00 12/24/17 22:13 12/24/17 22:30 Temperature 98.9 F 98.2 F 98.3 F Pulse Rate 110 H 112 H 108 H Respiratory Rate 18 18 19 Blood Pressure 122/57 L 132/63 137/74 Pulse Oximetry 95 12/25/17 00:00 12/25/17 01:45 12/25/17 04:00 Temperature 98.3 F 98 F 97.7 F Pulse Rate 99 H 90 91 H Respiratory Rate 19 18 18 Blood Pressure 137/74 124/70 137/60 Pulse Oximetry 95 95 97 12/25/17 04:46 Temperature Pulse Rate 91 H Respiratory Rate Blood Pressure Pulse Oximetry Intake & Output 12/24/17 12/24/17 12/25/17 06:59 18:59 06:59 Intake Total 1510 / 1510 450 / 450 400 / 400 Balance 1510 / 1510 450 / 450 400 / 400 Intake: IV 1050 / 1050 50 / 50 LR 1000 mL Inj 1,000 ML @ 80 1000 / 1000 mls/hr IV.CONT .[id number] [facility] Rx# :[id number] Ancef 2 GM Premix Inj 2 gm In 50 / 50 50 / 50 50 ml @ 100 mls/hr IV.SIG Q8H [facility] Rx#:[id number] Oral 460 / 460 Intake (Blood Product) Amt 400 / 400 400 / 400 Rbc As-3 Leukoreduced Unit 400 / 400 0 / 0 [id number] Rbc As-3 Leukoreduced Unit 0 / 0 [id number] Rbc As-3 Leukoreduced Unit 0 / 0 400 / 400 [id number] Other: Other Intake Source Rbc As-3 Leukoreduced Unit Saline Solution [id number] Rbc As-3 Leukoreduced Unit Saline Solution [id number] # Voids 4 Date of Last Bowel Movement 12/22/17 12/22/17 Narrative: LUE: Dressings clean and dry. Intact. Full sensation distally to median and ulnar nerve distribution Results - Labs CBC & Chem 7: 12/25/17 03:57 12/24/17 05:48 Laboratory Results - last 24 hr 12/24/17 12/24/17 12/24/17 05:48 05:48 08:08 WBC 11.6 H RBC 2.02 L Hgb 6.0 L* Hct 18.2 L* MCV 90.4 MCH 29.8 MCHC 32.9 RDW 14.4 Plt Count 151 D MPV 9.4 Prelim Diff (Auto) Investigative Shopper Neut % (Auto) 75.5 H Lymph % (Auto) 14.7 Campbell % (Auto) 9.2 H Eos % (Auto) 0.2 Baso % (Auto) 0.4 Neut # (Auto) 8.8 H Lymph # (Auto) 1.7 Campbell # (Auto) 1.1 H Eos # (Auto) 0.0 Baso # (Auto) 0.0 WBC Differential . Differential Comment Auto diff final Sodium 139 Potassium 4.1 Chloride 108 H Carbon Dioxide 26.8 Anion Gap 4 L BUN 15 Creatinine 0.63 Estimated GFR Greater than 89 POC Glucose 158 H Random Glucose 129 H Calcium 7.5 L Blood Type Blood Type Recheck Antibody Screen MTS Gel Crossmatch 12/24/17 12/24/17 12/24/17 09:05 12:07 17:40 WBC RBC Hgb Hct MCV MCH MCHC RDW Plt Count MPV Prelim Diff (Auto) Neut % (Auto) Lymph % (Auto) Campbell % (Auto) Eos % (Auto) Baso % (Auto) Neut # (Auto) Lymph # (Auto) Campbell # (Auto) Eos # (Auto) Baso # (Auto) WBC Differential Differential Comment Sodium Potassium Chloride Carbon Dioxide Anion Gap BUN Creatinine Estimated GFR POC Glucose 174 H 166 H Random Glucose Calcium Blood Type O Positive Blood Type Recheck Required Antibody Screen Negative MTS Gel Crossmatch See Detail 12/24/17 12/25/17 20:32 03:57 WBC RBC Hgb 10.3 L D Hct 30.1 L MCV MCH MCHC RDW Plt Count MPV Prelim Diff (Auto) Neut % (Auto) Lymph % (Auto) Campbell % (Auto) Eos % (Auto) Baso % (Auto) Neut # (Auto) Lymph # (Auto) Campbell # (Auto) Eos # (Auto) Baso # (Auto) WBC Differential Differential Comment Sodium Potassium Chloride Carbon Dioxide Anion Gap BUN Creatinine Estimated GFR POC Glucose 205 H Random Glucose Calcium Blood Type Blood Type Recheck Antibody Screen MTS Gel Crossmatch Assessment and Plan - Assessment and Plan Left proximal humerus fracture ORIF POD 2 Strict nonweightbearing left upper extremity with sling and swath at all times except for physical therapy Physical therapy for pendulum swings Daily dressing changes with Xeroform/4x4/MICHAEL Bilateral rami fractures Nonoperative treatment. Weightbearing as tolerated bilateral lower extremities Resume Plavix Plan for discharge to rehab when bed available Follow-up with Dr. Suazo or PA in 2 weeks
[2017-12-25] MEDS: Senna/Docusate Sodium 8.6/50 MG Tablet PO SCH (08:42)
[2017-12-25] MEDS: Lisinopril 20 MG Tablet PO SCH (08:42)
[2017-12-25] MEDS: Calcium/Vitamin D 250/125 MG Tablet PO SCH ×2 (08:43→12:43)
[2017-12-25] MEDS: Insulin NovoLIN Regular Correctional Sugar Inj SQ SCH ×4 (10:38→23:54)
[2017-12-25] MEDS: Budesonide-Formoterol 160/4.5 MCG 6 GM Inhaler INH SCH ×2 (10:38→23:52)
[2017-12-25] MEDS: Polyethylene Glycol 3350 17 GM Packet PO SCH (10:39)
--- NOTE | 2017-12-25 16:14 | P.PNGS ---
<Dong Baum M - Last Filed: 12/25/17 18:40> Subjective Interval history: Sedated during visit, reports she recently got a pain med Hemoglobin stable today Physical Exam Vital signs: Vital Signs 12/24/17 18:46 12/24/17 18:55 12/24/17 20:00 Temperature 99.0 F 98.9 F 98.9 F Pulse Rate 119 H 110 H 110 H Respiratory Rate 20 18 18 Blood Pressure 112/56 L 122/57 L 122/57 L Pulse Oximetry 95 95 95 12/24/17 22:13 12/24/17 22:30 12/25/17 00:00 Temperature 98.2 F 98.3 F 98.3 F Pulse Rate 112 H 108 H 99 H Respiratory Rate 18 19 19 Blood Pressure 132/63 137/74 137/74 Pulse Oximetry 95 12/25/17 01:45 12/25/17 04:00 12/25/17 04:46 Temperature 98 F 97.7 F Pulse Rate 90 91 H 91 H Respiratory Rate 18 18 Blood Pressure 124/70 137/60 Pulse Oximetry 95 97 12/25/17 08:00 12/25/17 09:00 12/25/17 12:00 Temperature 97.8 F 97.8 F Pulse Rate 89 89 98 H Respiratory Rate 18 18 Blood Pressure 115/55 L 118/55 L Pulse Oximetry 96 95 Intake & Output 12/24/17 12/25/17 12/25/17 18:59 06:59 18:59 Intake Total 450 / 450 760 / 760 Output Total 750 / 750 Balance 450 / 450 10 / 10 Weight 63.5 kg Intake: IV 50 / 50 Ancef 2 GM Premix Inj 2 gm In 50 / 50 50 ml @ 100 mls/hr IV.SIG Q8H [facility] Rx#:[id number] Oral 360 / 360 Intake (Blood Product) Amt 400 / 400 400 / 400 Rbc As-3 Leukoreduced Unit 400 / 400 0 / 0 [id number] Rbc As-3 Leukoreduced Unit 0 / 0 [id number] Rbc As-3 Leukoreduced Unit 0 / 0 400 / 400 [id number] Output: Urine 750 / 750 Other: Other Intake Source Rbc As-3 Leukoreduced Unit Saline Solution [id number] Rbc As-3 Leukoreduced Unit Saline Solution [id number] # Voids 2 Date of Last Bowel Movement 12/22/17 12/22/17 Narrative: GENERAL:67 year old well-nourished, well developed female lying in bed. SKIN: Warm and dry. HEAD: Normocephalic. EYES: Pupils equal and round. No scleral icterus. ENT: No nasal bleeding or discharge. Mucous membranes pink and moist. NECK: Trachea midline. No JVD. CARDIOVASCULAR: Regular rate and rhythm. RESPIRATORY: No accessory muscle use. Lungs clear and diminished to auscultation. Breath sounds equal bilaterally. GASTROINTESTINAL: Abdomen soft, non-tender, nondistended. + BS. MUSCULOSKELETAL: Extremities without cyanosis, or edema. LUE dry dressing in place with sling. MAEW, + perfused NEUROLOGICAL: Sedated, arouses to voice. Normal speech. Assessment and Plan - Plan CHITIMACHA: Fell off a 3 step ladder landing on her left side and striking her head. Takes Plavix. No LOC. INJURIES: LEFT humerus fx LEFT superior and inferior pubic rami fxs (non-op) Sacral fx (non-op) PMHx: Chronic neck pain, COPD, DM, PVD, HTN, LLE stenosis, 1 PPD smoker 12/23: ORIF LEFT humerus LEFT humerus fx Orthopedics consulted 12/23: ORIF LEFT humerus Hgb 10.3 today Pain control Bowel regimen NWB LUE OOB- PT/OT ordered- recommend rehab LEFT superior and inferior pubic rami fxs, Sacral fx Orthopedics consulted Nonoperative management Pain control Bowel regimen WBAT BLE OOB- PT/OT ordered DM, COPD, HTN Home meds resumed ADA diet SSI PRN duonebs Plan of care discussed with patient at bedside. Collaborating Trauma surgeon agrees with plan. Case management consulted to assist with discharge planning. DC to SNF tomorrow if hgb remains stable. <Chandler Boudreaux - Last Filed: 01/16/18 18:11> Assessment and Plan - Attending Attestation The exam, history, and the medical decision-making described in the above note were completed with the assistance of the mid-level provider. I reviewed and agree with the findings presented. I attest that I had a [id number] encounter with the patient on the same day, and personally performed and documented my assessment and findings in the medical record.
[2017-12-26 05:56] LABS: Hematocrit 29.9 % (35.0-46.0); Hemoglobin 10.2 gm/dL (11.6-15.3)
--- NOTE | 2017-12-26 06:33 | P.PNOP ---
Subjective Interval history: Resting comfortably. Is planning on going to rehab today Physical Exam Vital signs: Vital Signs 12/25/17 08:00 12/25/17 09:00 12/25/17 12:00 Temperature 97.8 F 97.8 F Pulse Rate 89 89 98 H Respiratory Rate 18 18 Blood Pressure 115/55 L 118/55 L Pulse Oximetry 96 95 12/25/17 16:00 12/25/17 20:00 12/26/17 00:00 Temperature 97.1 F L 98.4 F 97.8 F Pulse Rate 83 97 H 91 H Respiratory Rate 18 18 18 Blood Pressure 124/61 113/58 L 116/53 L Pulse Oximetry 99 99 96 12/26/17 04:00 Temperature 98.3 F Pulse Rate 91 H Respiratory Rate 18 Blood Pressure 108/55 L Pulse Oximetry 96 Intake & Output 12/25/17 12/25/17 12/26/17 06:59 18:59 06:59 Intake Total 760 / 760 240 / 240 Output Total 750 / 750 Balance 10 240 / 240 Weight 63.5 kg 65.7 kg Intake: Oral 360 / 360 240 / 240 Intake (Blood Product) Amt 400 / 400 Rbc As-3 Leukoreduced Unit 0 / 0 [id number] Rbc As-3 Leukoreduced Unit 0 / 0 [id number] Rbc As-3 Leukoreduced Unit 400 / 400 [id number] Output: Urine 750 / 750 Other: Other Intake Source Rbc As-3 Leukoreduced Unit Saline Solution [id number] # Voids 2 3 Date of Last Bowel Movement 12/22/17 12/22/17 Narrative: Right upper extremity: Incision well approximated with nain in position. Minimal drainage. Sling and swath in place. Distally intact sensation with full extension/flexion of all fingers Results - Labs CBC & Chem 7: 12/26/17 05:30 12/24/17 05:48 Laboratory Results - last 24 hr 12/25/17 12/25/17 12/25/17 08:40 12:42 17:55 Hgb Hct POC Glucose 115 H 153 H 140 H 12/25/17 12/26/17 19:50 05:30 Hgb 10.2 L Hct 29.9 L POC Glucose 144 H Assessment and Plan - Assessment and Plan Left proximal humerus fracture ORIF POD 3 Strict nonweightbearing left upper extremity with sling and swath at all times except for physical therapy Physical therapy for pendulum swings Daily dressing changes with Xeroform/4x4/MICHAEL Bilateral rami fractures Nonoperative treatment. Weightbearing as tolerated bilateral lower extremities Resume Plavix Plan for discharge to rehab when bed available - ortho cleared Follow-up with Dr. Suazo or PA in 2 weeks
[2017-12-26] MEDS: Polyethylene Glycol 3350 17 GM Packet PO SCH (10:05)
[2017-12-26] MEDS: Lisinopril 20 MG Tablet PO SCH (10:05)
[2017-12-26] MEDS: Calcium/Vitamin D 250/125 MG Tablet PO SCH ×3 (10:05→12:32)
[2017-12-26] MEDS: Senna/Docusate Sodium 8.6/50 MG Tablet PO SCH ×2 (10:06→10:08)
[2017-12-26] MEDS: Budesonide-Formoterol 160/4.5 MCG 6 GM Inhaler INH SCH (10:08)
[2017-12-26] MEDS: Insulin NovoLIN Regular Correctional Sugar Inj SQ SCH ×2 (10:08→12:32)
--- NOTE | 2017-12-26 14:11 | P.DS ---
Date of admission: 12/23/17 00:35 Primary care physician: Gonsalo Buchanan DO Brief History from admission: S/P Fall DS: Diagnosis - Discharge Diagnosis (1) Fall from ladder Status: Acute (2) Bilateral pubic rami fractures Status: Acute (3) Closed fracture of left proximal humerus Status: Acute DS: Medications - Discharge Medications Prescriptions: oxycodone-acetaminophen 1 tab PO Q4H PRN #15 tab PRN Reason: Acute Pain DS: Summary Hospital Course: [place]: Fell off a 3 step ladder landing on her left side and striking her head. Takes Plavix. No LOC. INJURIES: LEFT humerus fx LEFT superior and inferior pubic rami fxs (non-op) Sacral fx (non-op) PMHx: Chronic neck pain, COPD, DM, PVD, HTN, LLE stenosis, 1 PPD smoker 12/23: ORIF LEFT humerus LEFT humerus fx Orthopedics consulted, follow-up as outpatient 12/23: ORIF LEFT humerus Hgb stable Pain control Bowel regimen NWB LUE OOB- PT/OT ordered- recommend rehab LEFT superior and inferior pubic rami fxs, Sacral fx Orthopedics consulted Nonoperative management Pain control Bowel regimen WBAT BLE OOB- PT/OT ordered DM, COPD, HTN Home meds resumed ADA diet SSI PRN duonebs Resume Plavix Follow-up with PCP in 1 week Plan of care discussed with patient at bedside. Collaborating Trauma surgeon agrees with plan. Case management consulted to assist with discharge planning. Patient is clear from trauma surgery standpoint to safely discharge to SNF. - Time Spent with Patient Total time spent providing and/or coordinating discharge services: - Quality: VTE Deep Vein Thrombosis/Pulmonary Embolism Present on Admission: No Exam Vital signs: Vital Signs 12/25/17 16:00 12/25/17 20:00 12/26/17 00:00 Temperature 97.1 F L 98.4 F 97.8 F Pulse Rate 83 97 H 91 H Respiratory Rate 18 18 18 Blood Pressure 124/61 113/58 L 116/53 L Pulse Oximetry 99 99 96 12/26/17 04:00 12/26/17 08:00 12/26/17 12:00 Temperature 98.3 F 98.3 F 99.0 F Pulse Rate 91 H 91 H 98 H Respiratory Rate 18 16 16 Blood Pressure 108/55 L 110/56 L 108/54 L Pulse Oximetry 96 97 16 L Intake & Output 12/25/17 12/26/17 12/26/17 18:59 06:59 18:59 Intake Total 240 / 240 240 / 240 Output Total 900 / 900 Balance 240 / 240 -660 / -660 Weight 65.7 kg Intake: Oral 240 / 240 240 / 240 Output: Urine 900 / 900 Other: # Voids 3 Date of Last Bowel Movement 12/22/17 12/22/17 12/26/17 # Bowel Movements 0 Narrative: GENERAL:67 year old well-nourished, well developed female OOB in chair eating breakfast. SKIN: Warm and dry. HEAD: Normocephalic. EYES: Pupils equal and round. No scleral icterus. ENT: No nasal bleeding or discharge. Mucous membranes pink and moist. NECK: Trachea midline. No JVD. CARDIOVASCULAR: Regular rate and rhythm. RESPIRATORY: No accessory muscle use. Lungs clear to auscultation. Breath sounds equal bilaterally. GASTROINTESTINAL: Abdomen soft, non-tender, nondistended. + BS. MUSCULOSKELETAL: Extremities without cyanosis, or edema. LUE dry dressing in place with sling. MAEW, + perfused NEUROLOGICAL: Sedated, arouses to voice. Normal speech. Results Procedures completed during hospitalization: 12/23: ORIF LEFT humerus Labs on day of discharge: Labs from last 24 hours 12/26/17 12/26/17 12/26/17 12:17 07:31 05:30 Hgb 10.2 L Hct 29.9 L POC Glucose 174 H 138 H 12/25/17 12/25/17 19:50 17:55 Hgb Hct POC Glucose 144 H 140 H - Impressions ITS Impressions Cervical Spine CT 12/22/17 21:19 CONCLUSION: 1. No evidence of acute fracture. 2. Moderate severity degenerative changes in the mid and lower cervical spine with subluxations C3-5 and hypertrophy at C5-6. These findings are similar to a recent PET/CT scan. 3. The only new finding is curvature of the cervical spine convex to the left. Head CT 12/22/17 21:19 CONCLUSION: 1. Negative noncontrast CT brain. . Hip X-Ray 12/22/17 21:20 CONCLUSION: 1. Fractures of the pubic bones bilaterally. 2. No left hip fracture seen. Abdomen/Pelvis CT 12/22/17 22:51 CONCLUSION: 1. Acute fractures of the left inferior pubic ramus and right superior pubic ramus. Likely nondisplaced acute fracture of the left sacral ala. 2. Prominent superficial soft tissue hematoma lateral to the left hip. 3. No acute intra-abdominal findings. Chest X-Ray 12/22/17 22:51 CONCLUSION: No acute cardiopulmonary disease identified. Humerus X-Ray 12/23/17 00:00 CONCLUSION: Intraoperative images. Discharge Plan - Discharge Disposition Patient Disposition: Discharge to SNF - Discharge Condition Condition: Stable - Discharge Order Discharge Orders: Discharge Order (Routine); Ordered 12/26/17 Ordered By: Dong Baum Orthopedic Clear for Discharge (Routine); Ordered 12/25/17 Ordered By: Pravin Knox - Physicians Team Primary Care Provider: Gonsalo Buchanan Attending Provider: Constance Wick Other Providers: Wm Brown MD ; Peng Barbosa MD ; Rishi Valenzuela MD ; [facility] [facility] ; Chandler Boudreaux MD ; Aster Velasco ARNP ; Tone Fernández MD ; Negrita Hoang MD ; Constance Wick MD ; Dong Baum ARNP ; [facility] ; Gonsalo Buchanan DO ; [facility]
--- NOTE | 2018-01-09 16:56 | MH ---
cc: Constance Wick MD DATE OF ADMISSION: 12/23/2017 DATE OF ADMISSION: 12/22/2017 ADMITTING PHYSICIAN: Dr. Wick HISTORY OF PRESENT ILLNESS: This 67-year-old female presents to the emergency room after she fell from second level of a storage space and landed on her left side. The patient is complaining of pain in her left arm and pelvis. She has a large hematoma of the left hip. She is being worked up with a full workup, She was admitted. PAST MEDICAL HISTORY: COPD, diabetes mellitus, hypertension, peripheral vascular disease. PAST SURGICAL HISTORY: That of balloon angioplasty and stenting of the leg. PHYSICAL EXAMINATION: GENERAL: Reveals a 67-year-old female. HEENT: Normocephalic. No trauma to the head. Pupils equal, reactive. Extraocular muscles intact. The patient has some bruising over the forehead. No hemotympanum. No Jacskon sign. NECK: Bilateral carotid pulses. No bruits. C-collar is removed. CHEST: Bilateral breath sounds. HEART: Regular rhythm. LUNGS: Decreased over both lung johnson due to a fairly significant COPD. The patient is hemodynamically stable. ABDOMEN: Soft. No rebound, no guarding, no masses. PELVIC: The patient has pain over the suprapubic area. EXTREMITIES: There is a large hematoma of the upper thigh. The patient has good proximal and distal pulses. No signs of vascular deficit. There is also slight deformity of the left arm consistent with a humerus fracture. NEUROLOGICAL EXAMINATION: The patient is grossly intact. EMERGENCY ROOM COURSE: The patient is resuscitating according to trauma principals. Full workup is completed. ASSESSMENT: The patient has degenerative changes in the cervical spine. Other than that, bilateral inferior superior rami fracture and shaft of the humerus fracture, closed. No intraabdominal or intrathoracic hemorrhage. PLAN: The patient is being admitted for further care. MD JENNIFFER Rivera/ELIZA , 04:40 PM , 04:47 PM
== END 2017-12-26 15:52 ==
LOC: NEPD 20:07 → NEDA 12-23 00:35 → N06 12-23 02:13
PROVIDERS: ADMIT Surgery; ATTEND Surgery